=== PATIENT | female | born 1945 | race Caucasian/White ===

== ENCOUNTER 2018-01-26 18:09 | Emergency (ER) | payer BC ==
[2018-01-26 18:43] VITALS: BP 152/76
--- NOTE | 2018-01-26 18:44 | ED ---
Upper Extremity Pain - HPI Summary HPI Summary: 72 yr old female with the complaint of left wrist pain. Onset Wednesday when she fell after turning her lights out in the house. She fell on her left hand, wrist. had pain over weekend. Not much pain now. She contacted her doctor who ordered xrays. And she was referred here with identified wrist fracture. She denies other injuries. No head, neck chest or abdomen injuries. No other long bone injuries. - History of Current Complaint Chief Complaint: UCUpperExtremity Stated Complaint: LEFT WRIST FRACTURE Time Seen by Provider: 01/26/18 18:43 Hx Last Menstrual Period: N/A - Allergies/Home Medications Allergies/Adverse Reactions: Allergies Allergy/AdvReac Type Severity Reaction Status Date / Time No Known Allergies Allergy Verified 01/26/18 18:43 Home Medications: Home Medications Chlorthalidone 25 mg PO DAILY 01/26/18 [History Confirmed 01/26/18] Cholecalciferol (Vitamin D3) [Vitamin D3] 1,000 unit PO DAILY 01/26/18 [History Confirmed 01/26/18] Cyanocobalamin TAB* [Vitamin B12 TAB*] 500 mcg PO DAILY 01/26/18 [History Confirmed 01/26/18] Rivaroxaban TAB(*) [Xarelto 15 mg(*)] 15 mg PO DAILY 01/26/18 [History Confirmed 01/26/18] Spironolactone TAB* [Aldactone TAB*] 50 mg PO DAILY 01/26/18 [History Confirmed 01/26/18] PMH/Surg Hx/FS Hx/Imm Hx Cardiovascular History: Reports: Hx Hypertension Respiratory History: Reports: Other Respiratory Problems/Disorders - history of PE - Surgical History Surgery Procedure, Year, and Place: right leg/has pins & screws Infectious Disease History: No Infectious Disease History: Denies: Traveled Outside the [place] in Last 30 Days - Family History Known Family History: Positive: None - Social History Occupation: Retired Lives: With Family Alcohol Use: None Substance Use Type: Reports: None Smoking Status (MU): Never Smoked Tobacco Review of Systems Constitutional: Negative Positive: Other - left wrist pain, fracture identified on xray prior to arrival here. All Other Systems Reviewed And Are Negative: Yes Physical Exam Triage Information Reviewed: Yes Vital Signs On Initial Exam: Initial Vitals Temp Pulse Resp BP Pulse Ox 97.2 F 95 22 152/76 98 01/26/18 18:37 01/26/18 18:37 01/26/18 18:37 01/26/18 18:37 01/26/18 18:37 Vital Signs Reviewed: Yes Appearance: Positive: Well-Appearing, No Pain Distress, Obese Skin: Positive: Warm, Other - some bruising over left wrist area. Skin intact, no open wounds. Head/Face: Positive: Normal Head/Face Inspection Eyes: Positive: Normal, EOMI ENT: Positive: Normal ENT inspection Neck: Positive: Supple, Nontender Respiratory/Lung Sounds: Positive: Clear to Auscultation, Breath Sounds Present Cardiovascular: Positive: RRR. Negative: Murmur Abdomen Description: Negative: Distended Musculoskeletal: Positive: Other - left wrist with some bruising and some tenderness over the distal radius. Neuro vascular intact in the left hand. Neurological: Positive: Sensory/Motor Intact, Alert, Oriented to Person Place, Time, CN Intact II-III Psychiatric: Positive: Normal Procedures - Splinting Left Upper Extremity Location: left hand, wrist, forearm. Hand-Made Type: orthoglass Splint: volar Pre-Proc Neuro Vasc Exam: normal Post-Proc Neuro Vasc Exam: normal Diagnostics - Vital Signs Vital Signs Temp Pulse Resp BP Pulse Ox 01/26/18 18:37 97.2 F 95 22 152/76 98 - Laboratory Lab Statement: Any lab studies that have been ordered have been reviewed, and results considered in the medical decision making process. - Radiology wrist, hand Xray Interpretation: Positive (See Comments) - distal radius fracture with impaction, and TFCC injury Radiology Interpretation Completed By: Radiologist Course/Dx - Course Course Of Treatment: 72 yr old with left distal radius fracture impacted/ displaced. and TFCC injury. VOlar splint applied. Follow up with Ortho hand , Dr Hughes. - Diagnoses Provider Diagnoses: TFCC (triangular fibrocartilage complex) injury, Distal radius fracture, left, Comminuted fracture, Impacted fracture Discharge - Sign-Out/Discharge Documenting (check all that apply): Patient Departure All imaging exams completed and their final reports reviewed: Yes - Discharge Plan Condition: Good Disposition: HOME Patient Education Materials: Wrist Fracture in Adults (ED), Hypertension (ED) Referrals: Eugene Bro MD [Primary Care Provider] - 2 Days Kp Hughes MD [Medical Doctor] - 1 Day - Billing Disposition and Condition Condition: GOOD Disposition: Home
== END 2018-01-26 19:19 | disposition home or self-care (01) ==
LOC: UCCORT 18:09
DX: S52.502A Unspecified fracture of the lower end of left radius, initial encounter for closed fracture (principal); S63.592A Other specified sprain of left wrist, initial encounter; W19.XXXA Unspecified fall, initial encounter; Y92.009 Unspecified place in unspecified non-institutional (private) residence as the place of occurrence of the external cause; I10 Essential (primary) hypertension; Z86.711 Personal history of pulmonary embolism; Z79.899 Other long term (current) drug therapy; Z79.01 Long term (current) use of anticoagulants
CPT/HCPCS: 25600; 99212; G0463

== ENCOUNTER → 2018-02-07 10:40 | Day surgery (SDC) | payer BC ==
[~2018-02-07 10:40] MED LIST: Buffered Lidocaine 0.9% SYRIN* 5 ML/SYR SYRINGE INTRADERM ONE; Bupivacaine 0.25% SDV PF* 10 ML VIAL INJ ONE; Bupivacaine 0.5% SDV PF* 30ML VIAL ONE; Clindamycin 900 MG/D5W BAG(*) 900 MG/50 ML BAG IVPB ONE; Dexamethasone IV* 4 MG/ML 1 ML (4 MG) IV SLOW PU ONE; Dexamethasone IV* 4 MG/ML 1 ML (4 MG) ONE; Famotidine IV* 10 MG/ML 2 ML (20 mg) IV ONE; Famotidine IV* 10 MG/ML 2 ML (20 mg) ONE; HYDROcodone/ACETAMIN 5-325 MG* 1 TAB ONE; HYDROmorphone INJ1* 1 MG/ML SYRINGE ONE; KETAMINE HCL* 50 MG/ML 10 ML VIAL ONE; Labetalol IV* 5 MG/ML 20 ML VIAL IV PUSH ONE; Labetalol IV* 5 MG/ML 20 ML VIAL ONE; Lidocaine 2% PF * 5 ML VIAL ONE; Midazolam* 1 MG/ML 2 ML VIAL (2 MG) ONE; Midazolam* 1 MG/ML 5 ML VIAL (5 MG) ONE; Naloxone* 0.4 MG/ML 1 ML VIAL IV PRN; Ondansetron INJ* 2 MG/ML VIAL ONE; Propofol* 10 MG/ML 20 ML BTL IV PUSH ONE; ROPIVACAINE 5 MG/ML 30 ML BTL (0.5%) ONE; fentaNYL* 50 MCG/ML 2 ML VIAL (100 MCG VIAL) IV PRN; fentaNYL* 50 MCG/ML 2 ML VIAL (100 MCG VIAL) ONE
[2018-02-07] MEDS: HYDROmorphone INJ1* 1 MG/ML SYRINGE IV PRN ×2 (16:09→16:23)
[2018-02-07] MEDS: Labetalol IV* 5 MG/ML 20 ML VIAL IV PUSH ONE ×2 (16:38→17:10)
[2018-02-07 18:09] VITALS: BP 140/89
--- NOTE | 2018-02-08 07:03 | RAD ---
INDICATION: Left wrist distal radius open reduction internal fixation. COMPARISON: Comparison is made with a prior x-ray study of the left wrist from January 26, 2018. TECHNIQUE: 24 seconds of intermittent fluoroscopic guidance were provided and 6 spot films of the left wrist were obtained in the operating room. FINDINGS: The films demonstrate operative reduction internal fixation of a comminuted displaced fracture of the distal radius. There is a metallic surgical plate placed along the anterior aspect of the distal radius spanning the fracture fragments transfixed with multiple screws surgical screws. IMPRESSION: INTRAOPERATIVE CONTROL FILMS. CPT II Codes: G9500
--- NOTE | 2018-02-08 11:27 | OP ---
DATE OF OPERATION: 02/07/18 [facility] DATE OF : 49. SURGEON: Getachew Li MD. STROKE COORDINATOR: STEPHAN Rojas. ANESTHESIOLOGIST: Dr. Mora. ANESTHESIA: General plus peripheral nerve block. PRE-OP DIAGNOSIS: Left comminuted multifragmented intraarticular distal radius fracture. POST-OP DIAGNOSIS: Left comminuted multifragmented intraarticular distal radius fracture. OPERATIVE PROCEDURE: Open reduction and internal fixation of left intra- articular, greater then 3 fragment distal radius fracture. INDICATIONS: Lena is 72 years old. She has a distal radius fracture where the volar aspect of the joint has been sheered off volarly and is impacted, and has particularly involved the lunate facet. It was seen, the lunate had followed that fragment was sitting very short. We had talked about risks and benefits. She wanted to proceed. ESTIMATED BLOOD LOSS: 5 mL. COMPLICATIONS: None. FINDINGS: See above and below. DESCRIPTION OF PROCEDURE: Lena was seen in the preoperative holding area. The correct site, side, and procedure were identified. We came back to the operating room where the arm was prepped and draped in the usual fashion. A time-out was performed. I exsanguinated the arm with the Esmarch and the tourniquet was inflated to 275 mmHg. The longitudinal incision was made over the distal FCR tendon. The FCR tendon sheath was opened. The tendon was retracted ulnarly. The subsheath was opened, interval between the FPL and radial artery was developed. The pronator quadratus was released off its radial margin and teed back transversely preserving the distal couple of millimeters of the volar capsular ligaments. The fracture was noted. There was some soft callus that had formed and this was debrided back to the pilot station Miguel edges. The fracture fragments were all mobilized. I released the brachioradialis, and released some of the soft callus around the fragments distally so they would reduce. I had placed the hand in 10-pounds of traction. I went ahead and reduced the fracture and secured it with one 0.45 K-wire from distal ulnar out dorsal radial. I then brought in my Synthes variable angle distal radius plate. This was pinned into place. Initially it was little too distal. I placed one screw in the oblong hole proximally and we moved the plate proximally. This was then pinned back into place. Mini C-arm fluoroscopy confirmed the reduction and the plate placement. I then placed two additional 2.4 mm cortical screws proximally. I then placed locking screws distally with the radial styloid screw being a variable angle locking screw. Once all the screws were in place and the K- wires had been removed, we checked the final reduction and hardware on the mini C-arm fluoroscopy. Everything looked good. We irrigated out the wound. The pronator quadrates was reapproximated with 3-0 Vicryl suture as was the subcutaneous tissue. The skin was closed with 4-0 nylon suture. Ropivacaine was then infiltrated into the operative area. The wound was dressed with Xeroform, 4x4s, sterile Webril, and a short-arm splint was applied with volar and dorsal plaster slabs. She was then woken up and taken to the recovery room in stable condition. [id number]/CPS #: [id number] LEON
== END | disposition home or self-care (01) ==
LOC: OR 10:40
PROVIDERS: ATTEND Orthopaedic Surgery Hand Surgery
DX: S52.572A Other intraarticular fracture of lower end of left radius, initial encounter for closed fracture (principal); W19.XXXA Unspecified fall, initial encounter; Y92.89 Other specified places as the place of occurrence of the external cause; G89.18 Other acute postprocedural pain; I10 Essential (primary) hypertension; Z86.711 Personal history of pulmonary embolism; Z79.01 Long term (current) use of anticoagulants
CPT/HCPCS: 76001; C1713; C1776; J1100; J1170; J2250; J2405; J2704; J2795; J3010; J3490